=== PATIENT | female | born 1980 | race Caucasian/White ===

== ENCOUNTER 2019-03-10 12:21 | Inpatient (IN) | payer OTHER ==
[~2019-03-10] VITALS: Ht 167.6 cm; Wt 68.0 kg
[2019-03-10] MEDS ORDERED: IV NS 0.9% 1,000 ML BAG IV ONE (12:30)
--- NOTE | 2019-03-10 12:30 | NUR ---
patient presented to the er [facility] from home, had a syncopal episode, s/p egg retrieval procedure. On 02 @ 2lpm via NC. Connected to the monitor and pulse ox. Dr. lindsay at bedside for eval. Ordered stat blood transfusion, IV access on the left ac and started another one on the RAC g18. Called lab and processed the blood. Patient is alert and oriented, verbally responsive, signed blood transfusion consent. dr. lilly pierre surgeon at bedside talking to patient and Dr. Lindsay. Patient will go to the OR stat for Laparoscopy, possible laparatomy per dr. Pierre. Signed all consents. 1320, blood transfusion infused no adverse reaction noted. Vital signs recorded. Will continue to monitor accordingly.
[2019-03-10 12:39] LABS: BASOPHILS % (AUTO) 0.2 % (0.0-2.0); EOSINOPHILS % (AUTO) 1.1 % (0.0-6.0); HEMATOCRIT 31 % (33-45); HEMOGLOBIN 10.8 g/dL (11.5-14.8); LYMPHOCYTES # (AUTO) 1.3 /CMM (0.8-4.8); LYMPHOCYTES % (AUTO) 13.3 % (20.0-44.0); MEAN CORPUSCULAR HGB CONC 34 g/dl (31.0-36.0); MEAN CORPUSCULAR VOLUME 86 fL (82-100); MONOCYTES # (AUTO) 0.7 /CMM (0.1-1.30); MONOCYTES % (AUTO) 7.6 % (2.0-12.0); NEUTROPHILS # (AUTO) 7.5 /CMM (1.8-8.9); NEUTROPHILS % (AUTO) 77.8 % (43.0-81.0); PLATELET COUNT (AUTO) 238 /CMM (150-450); RED BLOOD CELL COUNT(AUTO) 3.67 MIL/uL (4.0-5.2); WHITE BLOOD COUNT (AUTO) 9.7 K/uL (4.3-11.0)
--- NOTE | 2019-03-10 12:42 | NUR ---
aeronautical engineering technologist at bedside for exam.
[2019-03-10 12:47] LABS: CALCIUM, SERUM 8.4 mg/dL (8.5-10.1); CARBON DIOXIDE 27 mmol/L (21-32); CHLORIDE 107 mmol/L (98-107); CREATININE 0.9 mg/dL (0.6-1.3); GLUCOSE 111 mg/dL (74-106); SODIUM SERUM 140 mmol/L (136-145); UREA NITROGEN, BLOOD 13 mg/dL (7-18)
--- NOTE | 2019-03-10 12:58 | NUR ---
[facility]om[facility]a [facility] in ED - 03/10/19 at 1301 by TIMA CALL FROM [employer] WITH TRANSFER INFO, GOING TO [facility],ROOM 206-B, REPORT TO ENRICO REDDY AT [phone],MITCH PELAYO
--- NOTE | 2019-03-10 13:03 | NUR ---
PER DR JOYCE, HE SPOKE WITH [facility] WHO APPROVED DR GUI DICK TO DO SURGERY IF DR GALARZA, OR DR RAMOS IS UNAVAILIBLE.
[2019-03-10] MEDS ORDERED: ANESTHESIA TRAY IN PYXIS 1 EA TRAY MC ONE (13:57)
[2019-03-10] MEDS ORDERED: HYDROMORPHONE INJ 2 MG/ML DISP.SYRIN ONE (13:59)
[2019-03-10] MEDS ORDERED: MIDAZOLAM HCL 2 MG/2ML VIAL ONE (13:59)
[2019-03-10] MEDS ORDERED: ROCURONIUM BROMIDE 50 MG/5 ML ONE (13:59)
--- NOTE | 2019-03-10 14:07 | NUR ---
patient picked up and wheeled by OR staff to surgery, in no apparent distress noted. Report given.
[2019-03-10] MEDS ORDERED: DDAVP 20 MCG in IV NS 50 ML IV ONE (15:00)
[2019-03-10] MEDS ORDERED: MEPERIDINE HCL/PF 100 MG/ML DISP.SYRIN ONE (16:08)
[2019-03-10 16:51] LABS: HEMOGLOBIN 11.1 g/dL (11.5-14.8)
[2019-03-10 17:00] VITALS: BP 98/61
[2019-03-10] MEDS ORDERED: ONDANSETRON 4 MG TAB.RAPDIS PO PRN (17:00)
[2019-03-10] MEDS ORDERED: DOCUSATE SODIUM 250 MG CAPSULE PO PRN (17:00)
[2019-03-10] MEDS ORDERED: HYDROMORPHONE HCL 2 MG TABLET PO PRN (17:00)
[2019-03-10] MEDS ORDERED: ONDANSETRON HCL/PF 4 MG/2 ML VIAL IVP PRN (17:00)
[2019-03-10] MEDS ORDERED: ACETAMINOPHEN 325 MG TABLET PO PRN (17:00)
[2019-03-10] MEDS ORDERED: SENNOSIDES 8.6 MG TABLET PO PRN (17:00)
--- NOTE | 2019-03-10 17:00 | NUR ---
KIMBERLY RN OPENING NOTES RECEIVED PT REPORT AT BEDSIDE BY OR NURSE JYOTI. RECEIVED PT IN BED, ALERT AND ORIENTED X4. BREATHING EVEN & UNLABORED, TOLERATING RA SATURATING 99%. COMPLAINS OF ABDOMINAL PAIN 2/10. NO S/S OF RESPIRATORY OR CARDIAC DISTRESS NOTED. LEFT AC 20G NS RUNNING AT 125ML/HR, TOLERATING WELL, SITE CDI. RIGHT AC 18G SL, SITE CDI. VITAL SIGNS WNL. SKIN ASSESSMENT DONE AND RECORDED. ADMITTING ORDERS ATTENDED. SAFETY MEASURES IN PLACE W/ SIDE RAILS UP & BED ALARM ON. CALL LIGHT WITHIN REACH. WILL CONT TO MONITOR PT CLOSELY.
[2019-03-10] MEDS: IV D5 LR 1,000 ML IV PRN (19:06)
--- NOTE | 2019-03-10 19:15 | NUR ---
RN NOTES RECEIVED PT IN BED, A/OX4. ON ROOM AIR NO SOB. MOTHER AT BEDSIDE. NO C/O PAIN AT THIS TIME. SR/ST HR UP TO 105. SURGICAL DRESSINGS C/D/I, WITH NO SIGNS OF BLEEDING. NO VAGINAL BLEEDING NOTED AT THIS TIME. WITH ONGOING IVF OF D5LR AT 125 MLS/HR INFUSING WELL ON LAC G20. RAC G18 HEPLOCK PATENT, C/D/I. SAFETY MEASURES IN PLACED. CALL LIGHT WITHIN EASY REACH. WILL CONT TO MONITOR
[2019-03-10] MEDS ORDERED: DESMOPRESSIN 4 MCG/ML AMPUL SQ ONE (19:30)
[2019-03-10] MEDS ORDERED: IV NS 0.9% 250 ML IV ONE (19:30)
--- NOTE | 2019-03-10 19:30 | NUR ---
KIMBERLY RN CLOSING NOTES PATIENT IN BED, ALERT AND ORIENTED X4. FAMILY AT BEDSIDE. BREATHING EVEN & UNLABORED, TOLERATING RA SATURATING 99%. NO S/S OF RESPIRATORY OR CARDIAC DISTRESS NOTED. LEFT AC 20G, SITE CDI. RIGHT AC 18G, D5LR RUNNING AT 125ML/HR. SAFETY MEASURES IN PLACE W/ SIDE RAILS UP & BED ALARM ON. CALL LIGHT WITHIN REACH. ALL MD ORDERS ATTENDED. ENDORSED TO RESTORATIVE CARE TECHNICIAN NURSE FOR MARILOU.
[2019-03-10 20:00] VITALS: BP 102/59
[2019-03-10 20:27] LABS: HEMATOCRIT 29 % (33-45); HEMOGLOBIN 9.9 g/dL (11.5-14.8); MEAN CORPUSCULAR HGB CONC 34 g/dl (31.0-36.0); MEAN CORPUSCULAR VOLUME 84 fL (82-100); PLATELET COUNT (AUTO) 203 /CMM (150-450); RED BLOOD CELL COUNT(AUTO) 3.44 MIL/uL (4.0-5.2); WHITE BLOOD COUNT (AUTO) 11.9 K/uL (4.3-11.0)
[2019-03-10 22:00] VITALS: BP 94/51
--- NOTE | 2019-03-10 22:25 | NUR ---
RN NOTES PT NOTIFIED ME, PRIMARY NURSE RE: PAIN IN THE ABDOMEN, PRESSURE ON SHOULDERS. NO BLEEDING ON THE SURGICAL SITE. OFFERED PAIN MEDS, PER PT, PAIN IS TOLERABLE AT THIS TIME
--- NOTE | 2019-03-10 22:30 | NUR ---
RN NOTES RECEIVED CALL FROM DR LITTLE, UPDATED PT'S CONDITION (SINUS TACHY HR BELOW 110S, SBP ON 90S AND LOW 100S AND H/H), MENTIONED TO MD ABOUT PT'S C/O PRESSURE ON SHOULDER AND PAIN IN THE ABDOMEN, PER MD COMMON AFTER LAPAROSCOPIC SURGERY. MD ORDERED TO TRANSFUSED 1 UNIT RBC, PT MADE AWARE ABOUT MD ORDER AND AGREED UNABLE TO PLACED ORDER ON MEDITECH UNDER DR LITTLE, JESSICA VALDIVIA MADE AWARE. PAGED EPIC. AWAITING TO CALL BACK
--- NOTE | 2019-03-10 23:00 | NUR ---
RN NOTES RECEIVED CALL BACK FROM JESSICA DONALD, SKIP SPOKE WITH WANDA COTTO, INFORMED [employer] LOADER THAT DR LITTLE ORDERED TO TRANSFUSE 1UNIT RBC BUT UNABLE TO PLACE ORDER IN [facility] MD NOT PRIVILEGE IN THE FACILITY. [employer] LOADER WAS NOTIFIED H/H/ TRENDING DOWN FROM . TO .08/01. PER WANDA COTTO OK TO PLACE ORDER UNDER HIS NAME
[2019-03-10 23:20] VITALS: BP 105/57
[2019-03-10 23:35] VITALS: BP 96/52
[2019-03-10 23:50] VITALS: BP 100/50
[2019-03-11] VITALS (12 sets, daily range): BP systolic 95–124; BP diastolic 55–84
--- NOTE | 2019-03-11 02:28 | NUR ---
RN NOTES OFFERED PT BED CONNER. PT ABLE TO URINATE 400 MLS
[2019-03-11] MEDS ORDERED: DESMOPRESSIN 4 MCG/ML AMPUL ONE (02:48)
[2019-03-11] MEDS: IV D5 LR 1,000 ML IV PRN ×2 (02:50→11:31)
[2019-03-11] MEDS ORDERED: DESMOPRESSIN 4 MCG/ML AMPUL SQ ONE (03:00)
--- NOTE | 2019-03-11 07:04 | NUR ---
RN NOTES PT IN STABLE CONDITION. NO ACUTE CHANGES THROUGHOUT SHIFT. S/P BLOOD TRANSFUSION, NO ADVERSE REACTION. NO OVERT SIGNS OF BLEEDING NOTED. SURGICAL SITES REMAINED C/D/I. SAFETY MEASURES OBSERVED AT ALL TIMES. ALL NEEDS ANTICIPATED. ENDORSED TO AM RN FOR MARILOU
[2019-03-11 07:22] LABS: BASOPHILS % (AUTO) 0.2 % (0.0-2.0); EOSINOPHILS % (AUTO) 0.2 % (0.0-6.0); HEMATOCRIT 29 % (33-45); HEMOGLOBIN 9.9 g/dL (11.5-14.8); LYMPHOCYTES # (AUTO) 1.6 /CMM (0.8-4.8); LYMPHOCYTES % (AUTO) 17.9 % (20.0-44.0); MEAN CORPUSCULAR HGB CONC 34 g/dl (31.0-36.0); MEAN CORPUSCULAR VOLUME 84 fL (82-100); MONOCYTES # (AUTO) 0.8 /CMM (0.1-1.30); MONOCYTES % (AUTO) 8.7 % (2.0-12.0); NEUTROPHILS # (AUTO) 6.5 /CMM (1.8-8.9); PLATELET COUNT (AUTO) 183 /CMM (150-450); RED BLOOD CELL COUNT(AUTO) 3.42 MIL/uL (4.0-5.2); WHITE BLOOD COUNT (AUTO) 8.9 K/uL (4.3-11.0)
[2019-03-11 07:24] LABS: ALBUMIN 2.4 g/dL (3.4-5.0); BILIRUBIN,TOTAL 0.4 mg/dL (0.2-1.0); CALCIUM, SERUM 7.8 mg/dL (8.5-10.1); CREATININE 0.5 mg/dL (0.6-1.3); MAGNESIUM 1.6 mg/dL (1.8-2.4); PHOSPHORUS 2.8 mg/dL (2.5-4.9); POTASSIUM 3.8 mmol/L (3.5-5.1); TOTAL PROTEIN, SERUM 4.8 g/dL (6.4-8.2)
--- NOTE | 2019-03-11 07:30 | NUR ---
RN INITIAL NOTES RECEIVED PATIENT IN BED AWAKE, ALERT AND ORIENTED X4. INITIAL ASSESSMENT DONE. NO PAIN OR ACUTE DISTRESS AT THIS TIME. RESPIRATION EVEN AND UNLABORED. SKIN IS DRY WARM TO TOUCH. FAMILY MEMBER OF PATIENT AT BEDSIDE. PATIENT NOTED WITH LEFT AC AND RIGHT AC IV ACCESS. PATENT AND FLUSHING WELL. VITAL SIGNS WNL. PLAN OF CARE DISCUSSED. ALL NEEDS ANTICIPATED. SAFETY MEASURES OBSERVED. BED LOCKED AND IN LOW POSITION. CALL LIGHT WITHIN REACH. WILL CONTINUE TO MONITOR.
[2019-03-11 07:36] LABS: THYROID STIMULATING HORMONE 2.05 uIU/mL (0.358-3.74)
[2019-03-11 10:14] LABS: HEMOGLOBIN 9.5 g/dL (11.5-14.8)
--- NOTE | 2019-03-11 11:00 | NUR ---
MS RN NOTES NOTIFIED WANDA ROD ABOUT HGB/HCT LEVELS AT 10AM REDRAW. DEFERRED TO DR DICK FOR ORDERS. FANTASMA LIMA, NOTIFIED DR DICK, ORDERED CT ABD/PELVIS WO CONTRAST AND H/H REDRAW AT 1300. WILL MONITOR CLOSELY.
[2019-03-11] MEDS: Magnesium 1GM/D5W 100ML PREMIX 100 ML IV SCH ×2 (11:19→15:42)
[2019-03-11 14:41] LABS: BASOPHILS % (AUTO) 0.4 % (0.0-2.0); EOSINOPHILS % (AUTO) 0.7 % (0.0-6.0); HEMATOCRIT 30 % (33-45); HEMOGLOBIN 10.6 g/dL (11.5-14.8); LYMPHOCYTES % (AUTO) 22.2 % (20.0-44.0); MEAN CORPUSCULAR HGB CONC 35 g/dl (31.0-36.0); MEAN CORPUSCULAR VOLUME 84 fL (82-100); MONOCYTES # (AUTO) 0.7 /CMM (0.1-1.30); MONOCYTES % (AUTO) 8.4 % (2.0-12.0); NEUTROPHILS % (AUTO) 68.3 % (43.0-81.0); PLATELET COUNT (AUTO) 183 /CMM (150-450); RED BLOOD CELL COUNT(AUTO) 3.61 MIL/uL (4.0-5.2); WHITE BLOOD COUNT (AUTO) 8.8 K/uL (4.3-11.0)
[2019-03-11] MEDS ORDERED: IV NS 0.9% 1,000 ML BAG IV ONE (17:30)
--- NOTE | 2019-03-11 17:38 | NUR ---
MS RN NOTES PT DISCHARGED TO HOME WITH MOTHER AT BEDSIDE. PT LEFT IN PRIVATE CAR WITH FRIEND. DISCHARGE INSTRUCTIONS GIVEN/IV REMOVED/ PT HAD NO BELONGINGS. ALL NEEDS ATTENDED. PT TO HAVE FOLLOW UP APPT WITH DR DICK OUTPATIENT.
== END 2019-03-11 17:30 | disposition home or self-care (01) | DRG 919 ==
LOC: ER 12:26 → TELE 15:01 → TELE-TD 17:06 → MEDSG1 03-11 10:40
PROVIDERS: ADMIT Registered Nurse; ATTEND Registered Nurse
PROC: 0W9G4ZZ Drainage of Peritoneal Cavity, Percutaneous Endoscopic Approach (ICD-10-PCS; principal; 2019-03-10)
PROC: 30233N1 Transfusion of Nonautologous Red Blood Cells into Peripheral Vein, Percutaneous Approach (ICD-10-PCS; principal; 2019-03-10)
DX: T81.19XA Other postprocedural shock, initial encounter (principal); K66.1 Hemoperitoneum; N99.820 Postprocedural hemorrhage of a genitourinary system organ or structure following a genitourinary system procedure; Y83.8 Other surgical procedures as the cause of abnormal reaction of the patient, or of later complication, without mention of misadventure at the time of the procedure; E66.9 Obesity, unspecified; Z68.24 Body mass index [BMI] 24.0-24.9, adult; Y92.009 Unspecified place in unspecified non-institutional (private) residence as the place of occurrence of the external cause
CPT/HCPCS: 36415; 76856-TC; 80048-TC; 80053-TC; 80061-TC; 83735-TC; 84100-TC; 84443-TC; 84702-TC; 85025-TC; 85027-TC; 85730-TC; 86850-TC; 86921-TC; 87081-TC; 97116-TC; 97530-TC; A4216; A4217; G0378; J0330; J1100; J1170; J2175; J2250; J2405; J2597; J2704; J2710; J3475; J3490; J7030; J7050; P9016-BL; Q0162